=== PATIENT | male | born 1980 | race Two or more races ===

== ENCOUNTER 2016-05-16 15:31 | Emergency (ER) | payer OTHER ==
[~2016-05-16] VITALS: Ht 177.8 cm; Wt 74.8 kg
[2016-05-16] MEDS ORDERED: IBUPROFEN600 MG ORAL (17:31)
[2016-05-16 17:44] VITALS: BP 125/78
--- NOTE | 2016-05-16 20:19 | Emergency Room Report ---
History of Present Illness General Chief Complaint: Lower Extremity Injury Source: Patient Present Illness HPI The patient is a 35-year-old male presenting with right foot pain. Patient states that he fell backwards at work and struck the back of the right foot on a metal piece of the truck. Pain is now a 7/10 dull ache it does not radiate from the area. Patient denies any prior injury to the foot. Patient states the pain is worse with walking. The patient denies any numbness or tingling. The patient denies any other injury. The patient denies any other symptoms including fever, chills Allergies: Coded Allergies: No Known Allergies (Unverified , 05/16/16) Patient History Past Medical History: see triage record Past Surgical History: none Pertinent Family History: none Reviewed Nursing Documentation: PMH: Agreed, PSxH: Agreed Nursing Documentation-PMH Past Medical History: No Stated History Review of Systems All Other Systems: negative except mentioned in HPI Physical Exam Vital Signs Date Time Temp Pulse Resp B/P Pulse Ox O2 Delivery O2 Flow Rate FiO2 05/16/16 16:11 99.0 90 16 125/78 98 Room Air Sp02 EP Interpretation: reviewed, normal General Appearance: no apparent distress, alert, GCS 15, non-toxic Head: normocephalic, atraumatic Eyes: bilateral eye PERRL, bilateral eye normal inspection Musculoskeletal: normal range of motion, no calf tenderness, tender - TTP over the Posterior R ankle Neurologic: alert, oriented x3, responsive, motor strength/tone normal, sensory intact, speech normal Psychiatric: judgement/insight normal, memory normal, mood/affect normal, no suicidal/homicidal ideation Skin: normal color, no rash, warm/dry, well hydrated, abrasions - posterior R ankle Lymphatic: no adenopathy Medical Decision Making PA Attestation Dr. Desai is my supervising physician. Patient management was discussed with my supervising physician Diagnostic Impression: Primary Impression: Ankle abrasion ER Course The patient is a 35-year-old male presenting with right foot pain Ddx considered include but not limited to sprain/strain, fracture, contusion, abrasion PE: vitals WNl. NAD Right foot: Full active range of motion. No bony tenderness. There is abrasion over the Achilles tendon. No edema. No obvious deformity. No laxity. Xray of ankle is unremarkable Pt able to ambulate without difficulty Patient is given a prescription for Motrin and will be discharged home. ER precautions are given Other X-Ray Diagnostic Results Other X-Ray Diagnostic Results : X-Ray Ordered: R ankle Date: May 16, 2016 EP Interpretation: Yes Findings: no fractures, no dislocation, no soft tissue swelling Number of Views: 3 Other Impression I am acting as scribe for my supervising physician. My supervising physician's interpretation of the R ankle xrays are there are no fractures, dislocations or soft tissue swelling. Last Vital Signs Date Time Temp Pulse Resp B/P Pulse Ox O2 Delivery O2 Flow Rate FiO2 05/16/16 17:44 99.0 16 125/78 98 Room Air 05/16/16 16:11 90 Status: improved Disposition: HOME, SELF-CARE Condition: Improved Scripts Ibuprofen* (MOTRIN*) 600 Mg Tablet 600 MG ORAL Q8H Y for For Pain, #30 TAB 0 Refills Prov: KORI RODRIGUEZ 05/16/16 Patient Instructions: Ankle Pain Additional Instructions: I discussed my findings with the patient. All questions and concerns have been answered. Treatment and medication compliance have been addressed. I advised the patient that they need to follow up with PMD in 3-5 days. Return to ED if pain remains or worsens, numbness or tingling occurs, new rash is noticed, fever is noticed, or if needed for any reason. Patient verbalized understanding of discharge instructions. KORI RODRIGUEZ May 16, 2016 20:19
--- NOTE | 2016-05-17 11:45 | Diagnostic Imaging Report ---
Indication: Pain Comparison: None Findings: 3 views of the right ankle obtained. No acute fracture, malalignment, periostitis, or osteochondral defects are identified. Soft tissues are unremarkable. Impression: Negative examination
== END 2016-05-16 17:46 | disposition home or self-care (01) ==
LOC: EMR 17:03
DX: S90.511A Abrasion, right ankle, initial encounter (principal); W19.XXXA Unspecified fall, initial encounter; Y93.9 Activity, unspecified; Y99.0 Civilian activity done for income or pay
CPT/HCPCS: 99283